=== PATIENT | female | born 1960 | race Caucasian/White ===

== ENCOUNTER 2020-04-16 12:54 | Outpatient (REF) | payer OTHER, SELFPAY ==
[2020-04-16 13:22] LABS: COVID-19 Test Negative (Negative)
== END 2020-04-16 12:55 | disposition home or self-care (01) ==
LOC: HO.LAB 12:54
PROVIDERS: Visit Provider Internal Medicine
DX: Z20.828 Contact with and (suspected) exposure to other viral communicable diseases (principal)
CPT/HCPCS: 87635

== ENCOUNTER 2020-04-20 08:53 | Outpatient (REF) | payer OTHER, SELFPAY ==
[2020-04-20 09:28] LABS: COVID-19 Test Negative (Negative)
== END 2020-04-20 08:54 | disposition home or self-care (01) ==
LOC: HO.LAB 08:53
PROVIDERS: PCP Family Medicine; Visit Provider Internal Medicine
DX: Z20.828 Contact with and (suspected) exposure to other viral communicable diseases (principal)
CPT/HCPCS: 87635

== ENCOUNTER 2020-06-15 10:17 | Outpatient (REF) | payer OTHER, SELFPAY ==
[2020-06-15 10:37] LABS: COVID-19 Test Negative (Negative)
== END 2020-06-15 10:18 | disposition home or self-care (01) ==
LOC: HO.EMPCOV 10:17
PROVIDERS: PCP Family Medicine; Visit Provider Internal Medicine
DX: Z20.828 Contact with and (suspected) exposure to other viral communicable diseases (principal)
CPT/HCPCS: 87635; C9803